=== PATIENT | female | born 1950 | race Caucasian/White ===

== ENCOUNTER → 2016-11-11 | Outpatient (CLI) | payer MEDICARE ==
[~2016-11-11] MED LIST: ASP81TEC PO; ATR20T PO; CATHETER FLUSH 10 ML SYR IV PRN; DEXL60CA PO; DULO30CA PO; ESOM20CA PO; FISH1CAP15 PO; HYDR-3583 PO; HYDR25TA4 PO; IOHEXOL 350 MG/ML 100 ML (OMNIPAQUE 350) VIAL IV ONE; LISI1TAB10 PO; LVT.1T PO; METO-272 PO; METO1TAB10 PO; METO25TA PO; MNTL10T PO; MULT-608 PO; NF-ESOM40C PO; NS 100 ML (IVPB) BAG IV ONE; OMEP20TA7 PO; TAMO20TA2 PO; VENL75TA2 PO
[2016-11-11 10:38] LABS: BLOOD UREA NITROGEN 10 MG/DL (7-18); BUN/CREATININE RATIO 11; CREATININE SERUM 0.93 MG/DL (0.60-1.30); GFR ESTIMATED > 60
--- NOTE | 2016-11-11 12:22 | Diagnostic Imaging Report ---
PROCEDURE: CT abdomen and pelvis with contrast. TECHNIQUE: Multiple contiguous axial images were obtained through the abdomen and pelvis after administration of intravenous contrast. INDICATION: Right upper quadrant pain. 100 mL of Omnipaque 350 is administered intravenously. FINDINGS: The lower chest demonstrates minimal bibasilar atelectasis. There is a small hiatal hernia. The liver, the spleen, the pancreas, and the right adrenal gland appear unremarkable. The left adrenal gland demonstrates a 1.1 cm nodule similar to 2011 exam compatible with benign etiology, probably an adenoma. The kidneys have symmetric enhancement and contrast excretion. There is no hydronephrosis. The urinary bladder, slight apparent wall thickening is probably related to underdistention with no definite focal lesion. The abdominal aorta is normal in caliber. No paraaortic significant enlarged lymph node is seen. There is no free fluid or fluid collection in the abdomen or pelvis. No bowel obstruction. The appendix is normal. There is a diverticulosis in the sigmoid colon mostly with no diverticulitis. The lumbar spine demonstrate scoliotic curvature to the left centered at L3 level with a compensatory curvature convex to the right at the thoracolumbar junction. IMPRESSION: 1. Small hiatal hernia. 2. Diverticulosis. No diverticulitis. 3. Stable 1.1 cm left adrenal nodule from 2011, suggestive of an adenoma. Dictated by: Dictated on workstation # [id number]
== END ==
LOC: RAD 10:10
PROVIDERS: ATTEND Surgery Pediatric Surgery
DX: R10.11 Right upper quadrant pain (principal)
CPT/HCPCS: 36415; 74177; 82565; 84520

== ENCOUNTER → 2018-05-22 | Outpatient (CLI) | payer MEDICARE ==
[~2018-05-22] MED LIST changes: -CATHETER FLUSH 10 ML SYR IV PRN; -IOHEXOL 350 MG/ML 100 ML (OMNIPAQUE 350) VIAL IV ONE; -METO-272 PO; +METO-370 PO; -NS 100 ML (IVPB) BAG IV ONE
--- NOTE | 2018-05-22 13:45 | Diagnostic Imaging Report ---
INDICATION: Routine screening. COMPARISON: 04/28/2017 and 09/14/2015. TECHNIQUE: 2D and 3D bilateral screening mammography was performed with CAD. FINDINGS: Both breasts remain heterogeneously dense, limiting the sensitivity of mammography. A biopsy clip on the right remains in place. There is a density in the left breast on the CC view just lateral to the nipple line at posterior depth. This appears more prominent than on the prior exams. Additional views are recommended. This appears to be superiorly located on the MLO view. Scattered benign calcifications are noted. No malignant appearing microcalcifications are seen. The axillae are unremarkable. IMPRESSION: Left breast density. Additional views are recommended for further evaluation. ACR BI-RADS Category 0: Incomplete. (Needs additional imaging evaluation). Result letter will be mailed to the patient. Note: At least 10% of breast cancer is not imaged by mammography. Dictated by: Dictated on workstation # [id number]
== END ==
LOC: RAD 09:16
PROVIDERS: ATTEND Family Medicine
DX: Z12.31 Encounter for screening mammogram for malignant neoplasm of breast (principal); R92.8 Other abnormal and inconclusive findings on diagnostic imaging of breast
CPT/HCPCS: 77067

== ENCOUNTER → 2018-05-30 | Outpatient (CLI) | payer MEDICARE ==
--- NOTE | 2018-05-30 21:45 | Diagnostic Imaging Report ---
INDICATION: Left breast density. Study was performed for further evaluation. COMPARISON: Correlation is made with recent screening study from 05/22/2018. EXAMINATION: 2D and 3D unilateral left diagnostic mammography was performed including spot compression MLO and CC views as well as conventional 90 degree lateral view. FINDINGS: Additional views fail to demonstrate a discrete mass. The area of density shows normal dispersion and most likely represents superimposed tissue. No suspicious calcifications are seen. IMPRESSION: Additional views fail to demonstrate a discrete mass. The patient may return to routine annual screening mammography. ACR BI-RADS Category 1: Negative. Result letter will be mailed to the patient. Note: At least 10% of breast cancer is not imaged by mammography. Dictated by: Dictated on workstation # [id number]
== END ==
LOC: RAD 13:45
PROVIDERS: ATTEND Nurse Practitioner Family
DX: R92.2 Inconclusive mammogram (principal)

== ENCOUNTER → 2018-11-28 | Outpatient (CLI) | payer MEDICARE | LOC: CARD 08:52 | PROVIDERS: ATTEND Physician Assistant | DX: I11.9 Hypertensive heart disease without heart failure (principal); I51.9 Heart disease, unspecified; R06.02 Shortness of breath; G47.33 Obstructive sleep apnea (adult) (pediatric); R00.2 Palpitations; I36.1 Nonrheumatic tricuspid (valve) insufficiency | CPT/HCPCS: 93306 ==

== ENCOUNTER → 2019-06-12 | Outpatient (CLI) | payer MEDICARE ==
--- NOTE | 2019-06-13 09:25 | Diagnostic Imaging Report ---
INDICATION: Routine screening. COMPARISON is made with prior mammograms from 05/22/2018 and 04/28/2017. 2-D and 3-D bilateral screening mammography was performed with CAD. Both breasts are heterogeneously dense, limiting the sensitivity of mammography. Biopsy marker clip in the central right breast is again noted. Overall breast parenchymal pattern appears to be stable. There are scattered benign calcifications. No mass or malignant appearing microcalcifications are seen. Axillae are unremarkable. IMPRESSION: BI-RADS Category 2 No mammographic features suspicious for malignancy are identified. ACR BI-RADS Category 2: Benign findings. Result letter will be mailed to the patient. Note: At least 10% of breast cancer is not imaged by mammography. Dictated by: Dictated on workstation # [id number]
== END ==
LOC: RAD 14:49
PROVIDERS: ATTEND Nurse Practitioner Family
DX: Z12.31 Encounter for screening mammogram for malignant neoplasm of breast (principal); Z98.890 Other specified postprocedural states
CPT/HCPCS: 77067

== ENCOUNTER 2020-03-23 12:00 | Outpatient (CLI) | payer MEDICARE ==
[~2020-03-23] VITALS: Ht 162.6 cm; Wt 107.8 kg
[~2020-03-23 12:00] MED LIST changes: -METO-370 PO; +METO50TA7 PO
[2020-03-23] MEDS ORDERED: MTP25TSR PO (12:24)
[2020-03-23] MEDS ORDERED: ATOR10TA66 PO (12:24)
[2020-03-23] MEDS ORDERED: LEVO100T7 PO (12:24)
== END 2020-03-23 12:26 ==
LOC: PREOP 12:00
PROVIDERS: ATTEND Surgery
DX: Z01.818 Encounter for other preprocedural examination (principal)

== ENCOUNTER 2020-03-27 09:32 | Day surgery (SDC) | payer MEDICARE ==
[2020-03-27] VITALS (14 sets, daily range): BP systolic 115–170; BP diastolic 55–75
[~2020-03-27] VITALS: Ht 162.6 cm; Wt 107.8 kg
[~2020-03-27 09:32] MED LIST changes: +ATOR10TA66 PO; +LEVO100T7 PO; +MTP25TSR PO; +NS IV 500 ML 500 ML ONE
[2020-03-27] MEDS ORDERED: NS IV 500 ML 500 ML IV PRN (09:41)
[2020-03-27] MEDS ORDERED: HURRICAINE EXT TUBE (BENZOCAINE) XX PRN (09:45)
[2020-03-27] MEDS ORDERED: fentaNYL INJECTION 100 MCG/2 ML AMP IVP ONE (09:45)
[2020-03-27] MEDS ORDERED: MIDAZOLAM 5 MG/5 ML (VERSED) VIAL IV ONE (09:45)
[2020-03-27] MEDS ORDERED: LIDOCAINE JELLY 2% 6 ML SYRINGE MM PRN (09:45)
[2020-03-27] MEDS ORDERED: LIDOCAINE JELLY 2% 6 ML SYRINGE ONE (09:58)
[2020-03-27] MEDS ORDERED: fentaNYL INJECTION 100 MCG/2 ML AMP ONE ×2 (09:59→10:26)
[2020-03-27] MEDS ORDERED: MIDAZOLAM 5 MG/5 ML (VERSED) VIAL ONE ×2 (09:59)
--- NOTE | 2020-03-27 09:59 | Conscious Sedation/ASA ---
Conscious Sedation Pre-Proced Time 09:45 ASA Score 2 For ASA 3 and 4: Consider anesthesia and medical clearance. Also, for patients with a history of failed moderate sedation consider anesthesia. Airway Lungs Heart ASA score ASA 1: a normal healthy patient ASA 2: a patient with a mild systemic disease (mid diabetes, controlled hypertension, obesity ASA 3: a patient with a severe systemic disease that limits activity (angina, COPD, prior Myocardial infarction) ASA 4: a patient with an incapacitating disease that is a constant threat to life (CHF, renal failure) ASA 5: a moribund patient not expected to survive 24 hrs. (ruptured aneurysm) ASA 6: a declared brain- patient whose organs are being harvested. For emergent operations, add the letter E after the classification Mallampati Classification Grade 2 Sedation Plan Analgesia, Amnesia, Plan communicated to team members, Discussed options with patient/fam, Discussed risks with patient/fam The patient is an appropriate candidate to undergo the planned procedure, sedation, and anesthesia. The patient immediately re-assessed prior to indication. EMMANUEL BHAKTA MD Mar 27, 2020 09:59
[2020-03-27] MEDS ORDERED: morphine INJ 10 MG/ML 1ML (SYR OR VIAL) IVP PRN ×2 (10:00)
[2020-03-27] MEDS ORDERED: ACETAMINOPHEN 325 MG TABLET PO PRN (10:00)
[2020-03-27] MEDS ORDERED: HYDROcodone/APAP 5 MG/325 MG (LORTAB) TAB PO PRN (10:00)
[2020-03-27] MEDS ORDERED: ONDANSETRON 4 MG/2 ML (SDV) Z0FRAN IVP PRN (10:00)
--- NOTE | 2020-03-27 10:00 | Progress Note-Pre Operative ---
Pre-Operative Progress Note H&P Reviewed The H&P was reviewed, patient examined and no changes noted. Date Seen by Provider: Mar 27, 2020 Time Seen by Provider: 09:45 Date H&P Reviewed: Mar 27, 2020 Time H&P Reviewed: 09:45 Pre-Operative Diagnosis: screening colonscopy EMMANUEL BHAKTA MD Mar 27, 2020 10:00
--- NOTE | 2020-03-27 10:01 | Discharge Inst-Surgical ---
D/C Lap Instructions-LIVIA Follow Up Activity as tolerated Regular Diet Symptoms to Report: Fever over 101 degree F, Nausea/Vomiting Infection Signs and Symptoms to report: Increased redness, Foul odor of wound, Increased drainage Bathing instructions: May shower Operative Area Clean/Dry; Keep incision clean/dry If any problems/questions: Contact your physician or go to Emergency Room EMMANUEL BHAKTA MD Mar 27, 2020 10:01
--- NOTE | 2020-03-27 10:58 | Progress Note-Post Operative ---
Post-Operative Progess Note Surgeon (s)/Turning Sander Tender (s) Surgeon EMMANUEL BHAKTA MD Turning Sander Tender: none Pre-Operative Diagnosis screening colonscopy Post-Operative Diagnosis chronic stage 2 ext and int hemorrhoids, mild-moderate sigmoid diverticulosis. Procedure & Operative Findings Date of Procedure 03/27/20 Procedure Performed/Findings colonoscopy Anesthesia Type cs Estimated Blood Loss Estimated blood loss (mL): minimal Specimens/Packing Specimens Removed none EMMANUEL BHAKTA MD Mar 27, 2020 10:57
--- NOTE | 2020-03-27 18:29 | OPERATIVE REPORT ---
DATE OF SERVICE: 03/27/2020 ATTENDING PRIMARY CARE PHYSICIAN: Dr. Roselyn Das. PREOPERATIVE DIAGNOSES:03/28/2020 Screening colonoscopy with history of colon polyp as well as remote family history of colon cancer. POSTOPERATIVE DIAGNOSES: Chronic stage II external and internal hemorrhoids, mild to moderate sigmoid diverticulosis. PROCEDURE: Colonoscopy. SURGEON: Emmanuel Bhakta MD. ANESTHESIA: Conscious sedation. ESTIMATED BLOOD LOSS: Minimal. FINDINGS: Chronic stage II external and internal hemorrhoids, mild to moderate sigmoid diverticulosis. DISPOSITION: The patient tolerated the procedure well. INDICATION: The patient is a 69-year-old female known to us. She has had issues with gastroesophageal reflux disease as well as a known hiatal hernia; however, this was medically treated. She is in need of a screening colonoscopy. Her last colonoscopy was approximately five years ago and she states that polyps were identified, biopsied and found to be benign. She also does report a remote family history of colon cancer with her paternal grandfather having the disease. She is otherwise doing well, does not report any major issues with diarrhea nor constipation as well as no red blood per rectum nor any dark tarry stools. DESCRIPTION OF PROCEDURE: The patient was brought to the endoscopy suite, laid in the left lateral decubitus position. After adequate IV pain and sedated medications and conscious sedation anesthesia, a digital rectal examination was performed, which revealed mild chronic stage II external and internal hemorrhoids, not actively edematous nor inflamed and no bleeding. Normal sphincter tone was felt and there were no palpable masses. The endoscope was then intubated to the anus and rectum gently insufflated. The endoscope was then advanced to the valves of [place] of the rectum with no polyps or any neoplasms identified. Through the sigmoid colon, a mild to moderate sigmoid diverticulosis identified. No mucosal inflammatory changes to indicate any active diverticulitis. The endoscope was then advanced to the remainder of the descending, transverse and ascending colon to the cecum. These segments were normal. There were no polyps or any neoplasms identified throughout the colon or rectum. The endoscope was then slowly withdrawn while taking a second look and suctioning of residual air with no additional findings. The patient tolerated the procedure well. We will recommend the necessary lifestyle and diet accommodation including a high fiber diet with fiber supplementation which equates to 25 grams of fiber daily or more as well as significant amounts of water to promote soft stools on a daily basis. No polyps were identified and she does not have a first degree family history of colon cancer and if asymptomatic, she may wait 10 years for her next colonoscopy. Job ID: [id number] DocumentID: [id number] Dictated Date: 03/27/2020 10:47:02 Bundle Collector Date: 03/27/2020 18:28:59 Dictated By: EMMANUEL BHAKTA MD
== END 2020-03-27 11:48 | disposition home or self-care (01) ==
LOC: ENDO 09:32
PROVIDERS: ATTEND Surgery
DX: Z12.11 Encounter for screening for malignant neoplasm of colon (principal); Z86.010 Personal history of colon polyps; Z80.0 Family history of malignant neoplasm of digestive organs; K64.1 Second degree hemorrhoids; K57.30 Diverticulosis of large intestine without perforation or abscess without bleeding; K44.9 Diaphragmatic hernia without obstruction or gangrene; Z79.890 Hormone replacement therapy; Z79.899 Other long term (current) drug therapy; E03.9 Hypothyroidism, unspecified; I10 Essential (primary) hypertension; K21.9 Gastro-esophageal reflux disease without esophagitis; F32.9 Major depressive disorder, single episode, unspecified; E78.00 Pure hypercholesterolemia, unspecified

== ENCOUNTER → 2020-06-16 | Outpatient (CLI) | payer MEDICARE ==
[~2020-06-16] MED LIST changes: -NS IV 500 ML 500 ML ONE
--- NOTE | 2020-06-16 10:24 | Diagnostic Imaging Report ---
INDICATION: Postmenopausal screening. COMPARISON: Baseline. FINDINGS: AP Spine L1-L4: [BMD (g/cm2): 1.084] [T-Score: -1.0] [Z-Score: -0.5] [BMD Previous: NA] [BMD % Change: NA] LT Hip Neck: [BMD (g/cm2): 0.796] [T-Score: -1.7] [Z-Score: -0.9] LT Hip Total: [BMD (g/cm2):0.973] [T-Score:-0.3] [Z-Score: 0.3] [BMD Previous: NA] [BMD % Change: NA] RT Hip Neck: [BMD (g/cm2):0.849] [T-Score:-1.4] [Z-Score:-0.5] RT Hip Total: [BMD (g/cm2):0.958] [T-score:-0.4] [Z-Score:0.2] [BMD Previous:NA] [BMD % Change:NA] *Indicates significant change from prior examination based on 95% confidence level. World Health Organization criteria for BMD interpretation classify patients as Normal (T-score at or above -1.0), Osteopenic (T-score between -1.0 and -2.5) or Osteoporotic (T-score at or below -2.5). LIMITATIONS AND MODIFICATION: None. FRACTURE RISK (FRAX SCORE): The ten year probability of (%): Major Osteoporotic Fracture: [NA] Hip Fracture: [NA] IMPRESSION: 1. Osteopenia (Low bone mass). 2. Baseline examination. 3. See below National Osteoporosis Foundation guidelines on when to potentially initiate pharmacologic therapy. Based on the National Osteoporosis Foundation Guidelines, pharmacologic treatment should be initiated in any of the following, unless clinical conditions suggest otherwise: * Any patient with prior fragility fracture of the hip or vertebrae. A spine fracture indicates 5X risk for subsequent spine fracture and 2X risk for subsequent hip fracture. * Osteoporosis (T-score <-2.5). * Postmenopausal women and men age 50 and older with low bone mass/osteopenia (T-score between -1.0 and -2.5) by DXA and 10-year major osteoporotic fracture greater than 20% or a 10-year probability of hip fracture greater than 3%. These fracture risks are supplied above in the FRAX score, if applicable. * Clinician judgement and/or patient preferences may indicate treatment for people with 10-year fracture probabilities above or below these levels. Dictated by: Dictated on workstation # [id number]
--- NOTE | 2020-06-16 12:43 | Diagnostic Imaging Report ---
INDICATION: Routine screening. Comparison is made prior mammogram from 06/12/2019 and 05/22/2018. 2-D and 3-D bilateral screening mammography was performed with CAD. Both breasts remain heterogeneously dense, limiting the sensitivity of mammography. A marker clip central right breast is again noted. The overall parenchymal pattern is stable. No mass or malignant appearing microcalcifications are seen. There are benign calcifications. Axillae are unremarkable. IMPRESSION: BI-RADS Category 2 No mammographic features suspicious for malignancy are identified. ACR BI-RADS Category 2: Benign findings. Result letter will be mailed to the patient. Note: At least 10% of breast cancer is not imaged by mammography. Dictated by: Dictated on workstation # [id number]
== END ==
LOC: RAD 08:30
PROVIDERS: ATTEND Family Medicine
DX: Z12.31 Encounter for screening mammogram for malignant neoplasm of breast (principal); Z13.820 Encounter for screening for osteoporosis; M85.89 Other specified disorders of bone density and structure, multiple sites; Z78.0 Asymptomatic menopausal state; Z98.890 Other specified postprocedural states
CPT/HCPCS: 77063; 77067; 77080

== ENCOUNTER → 2020-10-30 | Outpatient (CLI) | payer MEDICARE | LOC: CARD 09:15 | PROVIDERS: ATTEND Physician Assistant | DX: Z51.11 Encounter for antineoplastic chemotherapy (principal); I11.9 Hypertensive heart disease without heart failure; I25.10 Atherosclerotic heart disease of native coronary artery without angina pectoris | CPT/HCPCS: 93306 ==

== ENCOUNTER → 2021-01-15 | Outpatient (CLI) | payer MEDICARE | LOC: LABNPT 05:19 | PROVIDERS: ATTEND Otolaryngology Otolaryngology/Facial Plastic Surgery | DX: G47.33 Obstructive sleep apnea (adult) (pediatric) (principal); Z20.822 Contact with and (suspected) exposure to COVID-19 | CPT/HCPCS: 87635 ==

== ENCOUNTER 2021-01-19 19:48 | Outpatient (CLI) | payer MEDICARE | END 2021-01-20 06:41 | disposition home or self-care (01) | LOC: SLEEP 19:48 | PROVIDERS: ATTEND Otolaryngology Otolaryngology/Facial Plastic Surgery | DX: G47.33 Obstructive sleep apnea (adult) (pediatric) (principal) | CPT/HCPCS: 95811 ==

== ENCOUNTER → 2021-01-29 | Outpatient (CLI) | payer MEDICARE | LOC: LABNPT 08:25 | PROVIDERS: ATTEND Otolaryngology Otolaryngology/Facial Plastic Surgery | DX: G47.33 Obstructive sleep apnea (adult) (pediatric) (principal); Z20.822 Contact with and (suspected) exposure to COVID-19 | CPT/HCPCS: 87635 ==

== ENCOUNTER 2021-01-30 19:28 | Outpatient (CLI) | payer MEDICARE | END 2021-01-31 06:55 | disposition home or self-care (01) | LOC: SLEEP 19:28 | PROVIDERS: ATTEND Otolaryngology Otolaryngology/Facial Plastic Surgery | DX: G47.33 Obstructive sleep apnea (adult) (pediatric) (principal); G47.31 Primary central sleep apnea | CPT/HCPCS: 95811 ==

== ENCOUNTER → 2021-05-12 | Outpatient (CLI) | payer MEDICARE ==
--- NOTE | 2021-05-12 11:46 | Diagnostic Imaging Report ---
INDICATION: Dyspnea. FINDINGS: PA and lateral views. The lungs are well aerated and clear. The heart is not enlarged. No pulmonary edema or hilar adenopathy. IMPRESSION: Normal PA and lateral chest. Dictated by: Dictated on workstation # [id number]
== END ==
LOC: RAD 11:17
PROVIDERS: ATTEND Nurse Practitioner Family
DX: R06.00 Dyspnea, unspecified (principal); R07.89 Other chest pain
CPT/HCPCS: 71046

== ENCOUNTER → 2022-06-21 | Outpatient (CLI) | payer MEDICARE ==
[~2022-06-21] MED LIST changes: +OMEP20TA56 PO; -OMEP20TA7 PO
--- NOTE | 2022-06-21 13:12 | Diagnostic Imaging Report ---
INDICATION: Postmenopausal screening COMPARISON: 06/16/2020 FINDINGS: AP Spine L1-L4: [BMD (g/cm2): 1.048] [T-Score: -1.3] [Z-Score: -0.7] [BMD Previous: 1.084] [BMD % Change: -3.3] LT Hip Neck: [BMD (g/cm2): 0.777] [T-Score: -1.9] [Z-Score: -0.9] LT Hip Total: [BMD (g/cm2):0.948] [T-Score:-0.5] [Z-Score: 0.2] [BMD Previous: 0.973] [BMD % Change: -2.6] RT Hip Neck: [BMD (g/cm2):0.850] [T-Score:-1.4] [Z-Score:-0.4] RT Hip Total: [BMD (g/cm2):0.967] [T-score:-0.3] [Z-Score:0.4] [BMD Previous:0.958] [BMD % Change:0.9] *Indicates significant change from prior examination based on 95% confidence level. World Health Organization criteria for BMD interpretation classify patients as Normal (T-score at or above -1.0), Osteopenic (T-score between -1.0 and -2.5) or Osteoporotic (T-score at or below -2.5). LIMITATIONS AND MODIFICATION: None. FRACTURE RISK (FRAX SCORE): The ten year probability of (%): Major Osteoporotic Fracture: [10.0] Hip Fracture: [1.8] IMPRESSION: 1. Osteopenia (Low bone mass). 2. Bone mineral density has decreased by a statistically significant amount, as detailed above. 3. See below National Osteoporosis Foundation guidelines on when to potentially initiate pharmacologic therapy. Based on the National Osteoporosis Foundation Guidelines, pharmacologic treatment should be initiated in any of the following, unless clinical conditions suggest otherwise: * Any patient with prior fragility fracture of the hip or vertebrae. A spine fracture indicates 5X risk for subsequent spine fracture and 2X risk for subsequent hip fracture. * Osteoporosis (T-score <-2.5). * Postmenopausal women and men age 50 and older with low bone mass/osteopenia (T-score between -1.0 and -2.5) by DXA and 10-year major osteoporotic fracture greater than 20% or a 10-year probability of hip fracture greater than 3%. These fracture risks are supplied above in the FRAX score, if applicable. * Clinician judgement and/or patient preferences may indicate treatment for people with 10-year fracture probabilities above or below these levels. Dictated by: Dictated on workstation # [id number]
--- NOTE | 2022-06-21 16:02 | Diagnostic Imaging Report ---
INDICATION: Routine screening. Comparison is made with prior mammogram 06/16/2020 and 06/12/2019. 2-D and 3-D bilateral screening mammography was performed with CAD. Both breasts are heterogeneously dense, limiting the sensitivity of mammography. A marker clip in the right breast is again noted. There are scattered benign calcifications in both breasts. The overall parenchymal pattern appears to be stable. No dominant mass or malignant-appearing microcalcifications are seen. Axillae are unremarkable. IMPRESSION: No mammographic features suspicious for malignancy are identified. ACR BI-RADS Category 2: Benign findings. Result letter will be mailed to the patient. Note: At least 10% of breast cancer is not imaged by mammography. BI-RADS Category 2 Dictated by: Dictated on workstation # [id number]
== END ==
LOC: RAD 12:16
PROVIDERS: ATTEND Nurse Practitioner Family
DX: Z12.31 Encounter for screening mammogram for malignant neoplasm of breast (principal); M85.80 Other specified disorders of bone density and structure, unspecified site; Z78.0 Asymptomatic menopausal state
CPT/HCPCS: 77063; 77067; 77080